=== PATIENT | male | born 1970 | race Hispanic/Latino ===

== ENCOUNTER 2018-10-26 20:33 | Emergency (ER) | payer OTHER ==
[2018-10-26] MEDS ORDERED: IBUPROFEN 400 MG TAB ONE (21:05)
[2018-10-26] MEDS ORDERED: NA CHLORIDE 0.9% 1,000 ML ONE (22:51)
[2018-10-26 23:42] LABS: Absolute Monocytes 1.2 K/uL (0.1-1.3); Basophils % 0.8 % (0-1.3); Eosinophils % 0.4 % (0-4.4); Hematocrit 42.5 % (39.6-49.0); Lymphocytes % 16.2 % (15.3-44.8); MCH 31.2 pg (27.0-35.0); MCV 88.3 fL (80-100); MPV 10.5 fL (7.6-11.3); RBC Red Blood Cell Count 4.82 M/uL (4.33-5.43)
[2018-10-26 23:46] LABS: Potassium 3.8 mmol/L (3.5-5.1)
--- NOTE | 2018-10-27 00:47 | EDPHYS ---
Physician Documentation [facility] Name: Holland Dowell Age: 48 yrs Sex: Male : 1970 Arrival Date: 10/26/2018 Time: 20:34 Bed 8 Private MD: ED Physician Spencer Chavez HPI: 10/26 21:55 This 48 yrs old Male presents to ER via Ambulatory with complaints of Fever. jr8 21:55 The patient reports fever, with an emergency department temperature of 103.1 degrees jr8 Fahrenheit. 10/27 00:44 Onset: The symptoms/episode began/occurred acutely, 4 day(s) ago. Modifying factors: jr8 there are no obvious modifying factors. Associated signs and symptoms: Pertinent positives: sore throat. Severity of symptoms: At their worst the symptoms were moderate in the emergency department the symptoms are unchanged. The patient has not experienced similar symptoms in the past. The patient has not recently seen a physician. Historical: - Allergies: 10/26 20:40 No Known Allergies; cc3 - PMHx: 20:40 None; cc3 - PSHx: 20:40 Appendectomy; cc3 - Immunization history:: Adult Immunizations not up to date. - Social history:: Smoking status: Patient/guardian denies using tobacco, never smoked. - Ebola Screening: : No symptoms or risks identified at this time. ROS: 10/27 00:44 Eyes: Negative for injury, pain, redness, and discharge, Neck: Negative for injury, jr8 pain, and swelling, Cardiovascular: Negative for chest pain, palpitations, and edema, Respiratory: Negative for shortness of breath, cough, wheezing, and pleuritic chest pain, Abdomen/GI: Negative for abdominal pain, nausea, vomiting, diarrhea, and constipation, Back: Negative for injury and pain, MS/Extremity: Negative for injury and deformity, Skin: Negative for injury, rash, and discoloration, Neuro: Negative for headache, weakness, numbness, tingling, and seizure. Constitutional: Positive for body aches, chills, fever. ENT: Positive for sore throat. Exam: 00:44 Head/Face: Normocephalic, atraumatic. Eyes: Pupils equal round and reactive to light, jr8 extra-ocular motions intact. Lids and lashes normal. Conjunctiva and sclera are non-icteric and not injected. Cornea within normal limits. Periorbital areas with no swelling, redness, or edema. ENT: Nares patent. No nasal discharge, no septal abnormalities noted. Tympanic membranes are normal and external auditory canals are clear. Oropharynx with no redness, swelling, or masses, exudates, or evidence of obstruction, uvula midline. Mucous membranes moist. Neck: Trachea midline, no thyromegaly or masses palpated, and no cervical lymphadenopathy. Supple, full range of motion without nuchal rigidity, or vertebral point tenderness. No Meningismus. Respiratory: Lungs have equal breath sounds bilaterally, clear to auscultation and percussion. No rales, rhonchi or wheezes noted. No increased work of breathing, no retractions or nasal flaring. Abdomen/GI: Soft, non-tender, with normal bowel sounds. No distension or tympany. No guarding or rebound. No evidence of tenderness throughout. Back: No spinal tenderness. No costovertebral tenderness. Full range of motion. Skin: Warm, dry with normal turgor. Normal color with no rashes, no lesions, and no evidence of cellulitis. MS/ Extremity: Pulses equal, no cyanosis. Neurovascular intact. Full, normal range of motion. Neuro: Awake and alert, GCS 15, oriented to person, place, time, and situation. Cranial nerves II-XII grossly intact. Motor strength 5/5 in all extremities. Sensory grossly intact. Cerebellar exam normal. Normal gait. 00:44 Cardiovascular: Rate: tachycardic, Rhythm: regular, Pulses: Pulses are 2+ in right radial artery and left radial artery. Heart sounds: normal, normal S1and S2, no S3 or S4, no murmur, no rub, no gallop, Edema: is not appreciated. Vital Signs: 1209 20:40 BP 156 / 82; Pulse 116; Resp 20 S; Temp 103.1(O); Pulse Ox 97% on R/A; Weight 92.99 kg cc3 (R); Height 5 ft. 6 in. (167.64 cm) (R); 21:21 BP 116 / 65; Pulse 105; Resp 19 S; Temp 102.6(O); Pulse Ox 97% on R/A; cc3 22:17 BP 104 / 58; Pulse 105; Resp 17; Temp 102.9; Pulse Ox 100% on R/A; rr5 23:41 BP 118 / 69; Pulse 98; Resp 18 S; Temp 100.6(O); Pulse Ox 98% on R/A; cc3 10/27 00:30 BP 122 / 70; Pulse 87; Resp 18 S; Temp 99.8(O); Pulse Ox 98% on R/A; cc3 10/26 20:40 Body Mass Index 33.09 (92.99 kg, 167.64 cm) cc3 MDM: 10/26 20:39 Patient medically screened. jr8 10/27 00:44 Differential diagnosis: viral Infection, bacterial infection, URI, bronchitis, jr8 pneumonia meningitis, sepsis. Data reviewed: vital signs, nurses notes, lab test result(s), radiologic studies, plain films. Data interpreted: Pulse oximetry: on room air is 98 %. Interpretation: normal. Counseling: I had a detailed discussion with the patient and/or guardian regarding: the historical points, exam findings, and any diagnostic results supporting the discharge/admit diagnosis, lab results, radiology results, the need for outpatient follow up, a family practitioner, to return to the emergency department if symptoms worsen or persist or if there are any questions or concerns that arise at home. Response to treatment: the patient's symptoms have markedly improved after treatment, patient is well hydrated. 10/26 20:46 Order name: Influenza Screen (a \T\ B); Complete Time: 21:37 8 10/26 20:46 Order name: Strep; Complete Time: 21:37 [facility] 10/26 21:18 Order name: Throat Culture [facility] 10/26 22:30 Order name: CBC with Diff; Complete Time: 00:17 8 10/26 22:30 Order name: Basic Metabolic Panel; Complete Time: 23:47 [facility] 10/26 22:30 Order name: [place] Screen Profile; Complete Time: 00:38 [facility] 10/26 22:28 Order name: XRAY Chest (1 view) [facility] 10/26 22:30 Order name: Procalcitonin; Complete Time: 00:46 8 10/26 22:30 Order name: Blood Culture Adult (2) [facility] 10/26 22:30 Order name: Lactate; Complete Time: 00:16 jr8 Administered Medications: 10/26 20:57 Drug: Ibuprofen 800 mg Route: PO; cc3 21:20 Follow up: Response: No adverse reaction; Temperature is decreased cc3 23:04 Drug: NS 0.9% 1000 ml Route: IV; Rate: 1000 ml; Site: right antecubital; cc3 23:56 Follow up: Response: No adverse reaction; IV Status: Completed infusion; IV Intake: cc3 1000ml Disposition: 10/27 01:36 Co-signature as Attending Physician, Spencer Chavez MD I agree with the assessment and tw4 plan of care. Disposition: 10/27/18 00:46 Discharged to Home. Impression: Fever, unspecified, Acute pharyngitis. - Condition is Stable. - Discharge Instructions: Fever, Adult, Pharyngitis. - Prescriptions for Zithromax Z- Carlitos 250 mg Oral Tablet - take 1 tablet by ORAL route as directed for 5 days Day 1 - take two (2) tablets one time. Day 2, 3, 4 , 5 take one (1) tablet once daily.; 6 tablet. Tessalon Perles 100 mg Oral Capsule - take 1 capsule by ORAL route every 8 hours As needed; 15 capsule. - Medication Reconciliation Form, Thank You Letter, Antibiotic Education, Prescription Opioid Use form. - Follow up: Private Physician; When: 1 - 2 days; Reason: Recheck today's complaints, Continuance of care, Re-evaluation by your physician. - Problem is new. - Symptoms have improved. Signatures: Dispatcher [employer] EDMS Sang Murillo PA PA jr8 Spencer Chavez MD MD 4 Oksana Chase cc3 Corrections: (The following items were deleted from the chart) 00:58 00:46 10/27/2018 00:46 Discharged to Home. Impression: Fever, unspecified; Acute cc3 pharyngitis. Condition is Stable. Forms are Medication Reconciliation Form, Thank You Letter, Antibiotic Education, Prescription Opioid Use. Follow up: Private Physician; When: 1 - 2 days; Reason: Recheck today's complaints, Continuance of care, Re-evaluation by your physician. Problem is new. Symptoms have improved. jr8
--- NOTE | 2018-10-27 00:47 | ER ---
Nurse's Notes [facility] Name: Holland Dowell Age: 48 yrs Sex: Male : 1970 Arrival Date: 10/26/2018 Time: 20:34 Bed 8 Private MD: Diagnosis: Fever, unspecified;Acute pharyngitis Presentation: 10/26 20:40 Presenting complaint: Patient states: fever and generalized acute body pain since 4 cc3 days. Transition of care: patient was not received from another setting of care. Onset of symptoms was October 23, 2018. Risk Assessment: Do you want to hurt yourself or someone else? Patient reports no desire to harm self or others. Initial Sepsis Screen: Does the patient meet any 2 criteria? Temp <36.0*C (96.8*F)) or > 38.3*C (100.9*F). HR > 90 bpm. Does the patient have a suspected source of infection? No. Patient's initial sepsis screen is negative. Care prior to arrival: Medication(s) given: Tylenol, 2 tabs. 20:40 Method Of Arrival: Ambulatory cc3 20:40 Acuity: MARIANO 3 cc3 Triage Assessment: 20:40 General: Appears in no apparent distress. uncomfortable, Behavior is calm, cooperative, cc3 appropriate for age. Pain: Complains of pain in generalized acute body pain. EENT: No signs and/or symptoms were reported regarding the EENT system. Neuro: Level of Consciousness is awake, alert, obeys commands, Oriented to person, place, time, situation, Appropriate for age. Cardiovascular: Denies chest pain. Cardiovascular: Patient's skin is warm and dry. Respiratory: Airway is patent Respiratory effort is even, unlabored, Respiratory pattern is regular, symmetrical. GI: Abdomen is round non-distended. : No signs and/or symptoms were reported regarding the genitourinary system. Derm: No signs and/or symptoms reported regarding the dermatologic system. Musculoskeletal: Circulation, motion, and sensation intact. Range of motion: intact in all extremities. Historical: - Allergies: 20:40 No Known Allergies; cc3 - PMHx: 20:40 None; cc3 - PSHx: 20:40 Appendectomy; cc3 - Immunization history:: Adult Immunizations not up to date. - Social history:: Smoking status: Patient/guardian denies using tobacco, never smoked. - Ebola Screening: : No symptoms or risks identified at this time. Screenin:40 Abuse screen: Denies threats or abuse. Denies injuries from another. Nutritional cc3 screening: No deficits noted. Tuberculosis screening: No symptoms or risk factors identified. Fall Risk Ambulatory Aid- None/Bed Rest/Nurse Assist (0 pts). Gait- Normal/Bed Rest/Wheelchair (0 pts) Mental Status- Oriented to own ability (0 pts). Assessment: 20:40 General: see triage assessment. cc3 21:20 Reassessment: Patient appears in no apparent distress at this time. Patient and/or cc3 family updated on plan of care and expected duration. Pain level reassessed. Patient is alert, oriented x 3, equal unlabored respirations, skin warm/dry/pink. 22:15 Reassessment: Patient appears in no apparent distress at this time. Patient and/or rr5 family updated on plan of care and expected duration. Pain level reassessed. no complaints made. 23:40 Reassessment: Patient appears in no apparent distress at this time. Patient and/or cc3 family updated on plan of care and expected duration. Pain level reassessed. Patient is alert, oriented x 3, equal unlabored respirations, skin warm/dry/pink. 10/27 00:32 Reassessment: Patient appears in no apparent distress at this time. Patient and/or cc3 family updated on plan of care and expected duration. Pain level reassessed. Patient is alert, oriented x 3, equal unlabored respirations, skin warm/dry/pink. 00:50 Reassessment: JERRY Domínguez discharged the patient home with prescription given. IV cannula cc3 removed and patient left ER vitally stable and ambulatory. Vital Signs: 12 20:40 BP 156 / 82; Pulse 116; Resp 20 S; Temp 103.1(O); Pulse Ox 97% on R/A; Weight 92.99 kg cc3 (R); Height 5 ft. 6 in. (167.64 cm) (R); 21:21 BP 116 / 65; Pulse 105; Resp 19 S; Temp 102.6(O); Pulse Ox 97% on R/A; cc3 22:17 BP 104 / 58; Pulse 105; Resp 17; Temp 102.9; Pulse Ox 100% on R/A; rr5 23:41 BP 118 / 69; Pulse 98; Resp 18 S; Temp 100.6(O); Pulse Ox 98% on R/A; cc3 12 00:30 BP 122 / 70; Pulse 87; Resp 18 S; Temp 99.8(O); Pulse Ox 98% on R/A; cc3 10/26 20:40 Body Mass Index 33.09 (92.99 kg, 167.64 cm) cc3 ED Course: 10/26 20:34 Patient arrived in ED. ds1 20:37 Oksana Chase is Primary Nurse. cc3 20:39 Sang Murillo PA is PHCP. jr8 20:39 Spencer Chavez MD is Attending Physician. jr8 20:40 Arm band placed on right wrist. cc3 20:40 Patient has correct armband on for positive identification. Bed in low position. Call cc3 light in reach. Side rails up X 1. Pulse ox on. NIBP on. 20:44 Triage completed. cc3 20:51 Strep Sent. cc3 20:51 Influenza Screen (a \T\ B) Sent. cc3 22:54 XRAY Chest (1 view) In Process Unspecified. EDMS 23:06 Inserted saline lock: 20 gauge in right antecubital area, using aseptic technique. ds4 Blood collected. 12 00:50 No provider procedures requiring assistance completed. IV discontinued, intact, cc3 bleeding controlled, No redness/swelling at site. Pressure dressing applied. Administered Medications: 10/26 20:57 Drug: Ibuprofen 800 mg Route: PO; cc3 21:20 Follow up: Response: No adverse reaction; Temperature is decreased cc3 23:04 Drug: NS 0.9% 1000 ml Route: IV; Rate: 1000 ml; Site: right antecubital; cc3 23:56 Follow up: Response: No adverse reaction; IV Status: Completed infusion; IV Intake: cc3 1000ml Intake: 23:56 IV: 1000ml; Total: 1000ml. cc3 Outcome: 10/27 00:46 Discharge ordered by . jr8 00:50 Discharged to home ambulatory. cc3 00:50 Condition: stable 00:50 Discharge instructions given to patient, Instructed on discharge instructions, follow up and referral plans. medication usage, Demonstrated understanding of instructions, follow-up care, medications, Prescriptions given X 2. 00:58 Patient left the ED. cc3 Signatures: Dispatcher [employer] EDWY Sarah Madrigal ds1 Sang Murillo PA PA jr8 Jamir Aguilar ds4 Oksana Chase cc3 Jordon Dykes, RN RN rr5
--- NOTE | 2018-10-27 08:16 | RAD REPORT ---
EXAM DESCRIPTION: RAD - Chest Single View - 10/26/2018 10:56 pm CLINICAL HISTORY: COUGH Chest pain. COMPARISON: CHEST SINGLE VIEW dated 02/03/2016 FINDINGS: Portable technique limits examination quality. The lungs are grossly clear. The heart is normal in size. No displaced fractures. IMPRESSION: No acute intrathoracic process suspected.
== END 2018-10-27 00:58 | disposition home or self-care (01) ==
LOC: ER 20:33
DX: J02.9 Acute pharyngitis, unspecified (principal)
CPT/HCPCS: 36415; 71045; 80048; 83605; 84145; 85025; 86308; 87040; 87070; 87081; 87804; 96360; 99284; J7030